=== PATIENT | male | born 1975 | race Caucasian/White ===

== ENCOUNTER 2020-05-18 00:49 | Outpatient (CLI) | payer BC, SELFPAY ==
[2020-05-18 19:29] LABS: SARS-CoV-2 RNA PCR Negative
== END 2020-05-18 00:50 | disposition home or self-care (01) ==
LOC: ANHCOVIDDT 00:50
PROVIDERS: PCP Internal Medicine; Visit Provider Orthopaedic Surgery
DX: Z01.812 Encounter for preprocedural laboratory examination (principal); Z20.828 Contact with and (suspected) exposure to other viral communicable diseases
CPT/HCPCS: 87635; C9803; U0003

== ENCOUNTER 2020-05-21 01:31 | Day surgery (SDC) | payer BC, SELFPAY ==
[2020-05-17 16:57] VITALS: BMI 22.8
--- NOTE | 2020-05-20 08:47 | WPDANESEPPF ---
Anes - Initial Pre Proc Eval Procedure: Operation Date: 05/21/20 14:45 Proposed Procedures p Left Thumb Ulnar Collateral Ligament Repair - César Mcguire MD Date/Time: 05/20/20 08:47 Surgeon: César Mcguire MD Pre Op Diagnosis: LEFT THUMB ULNAR COLLATERAL LIGAMENT TEAR Patient Data Age: 44 Gender: M Height: 1.73 m Weight: 68.04 kg Allergies Allergy/AdvReac Type Severity Reaction Status Date / Time amoxicillin Allergy Unknown Hives Verified 05/21/20 13:20 Home Medications Medication Instructions Recorded Confirmed Type No Home Medications 05/17/20 05/17/20 History Patient hx anesthesia problems: none Family hx anesthesia problems: none [facility] Surgical History Surgical History (Updated 05/20/20 @ 08:47 by Rosales Almodovar DO) History of vasectomy Family History Family History (Updated 05/17/20 @ 10:30 by Margaret Cheung, RT(R)) Other Hypertension Malignant neoplasm Social History Social History (Updated 05/17/20 @ 10:31 by Margaret Cheung RT(R)) Smoking status: Never smoker Second hand tobacco smoke exposure: No Alcohol intake: current Drinks per week: 3 Substance use: never Living arrangements: with family Spiritual care concerns: No Anes - Eval Final PreProcedure Day of Procedure 05/20/20 08:47 Patient weight: normal Heart: regular rate and rhythm Lungs: clear to auscultation and normal air movement Airway: Mallampati scale class II Neurological: alert and oriented Last oral intake: >/= 8 hours ASA classification: I Emergent: no Anesthetic plan: proceed Anesthesia type and monitoring: general LMA and standard monitoring Informed Consent: The patient's anesthetic plan and its attendant risks and benefits were discussed with the patient/family/POA. Questions were solicited and answers provided to the satisfaction of the patient/family/POA.
--- NOTE | 2020-05-21 07:24 | WPDHPUPDATE1 ---
History and Physical Update Update Date/Time: 05/21/20 07:24 History and Physical has been reviewed, including an updated exam of the patient. There are NO changes in the patient's condition. Risks, benefits, and alternatives have been discussed and questions answered. Patient agrees to proceed with procedure.
--- NOTE | 2020-05-21 07:25 | WPDHPUPDATE1 ---
History and Physical Update Update Date/Time: 05/21/20 07:25 History and Physical has been reviewed, including an updated exam of the patient. There are NO changes in the patient's condition. Risks, benefits, and alternatives have been discussed and questions answered. Patient agrees to proceed with procedure.
[2020-05-21 12:41] VITALS: BP 118/8; PULSE 67; RESP 18; TEMP 36.5; O2SAT 100
[2020-05-21] MEDS: LACTATED RINGERS 1,000 ML 30 ML IV CONT ×2 (13:00→16:18)
[2020-05-21] MEDS: CELECOXIB 200 MG CAPSULE PO (13:05)
[2020-05-21] MEDS: ACETAMINOPHEN 500 MG TABLET 1000 MG PO (13:05)
[2020-05-21] MEDS: CLINDAMYCIN 900 MG/NS 50 ML 900 MG/50 ML PIGGYBACK 50 MG IVPB (14:10)
--- NOTE | 2020-05-21 16:06 | PM.OP ---
Procedure Note - Brief Procedure Note - Brief Date of procedure: 05/21/20 Pre-op diagnosis: LEFT THUMB ULNAR COLLATERAL LIGAMENT TEAR Post-op diagnosis: same Procedure performed: REPAIR LEFT THUMB ULNAR COLLATERAL LIGAMENT Anesthesia: GLMA Surgeon: César Mcguire MD Estimated blood loss (mL): 5 Complications: No immediate complications Condition: stable Disposition: PACU
[2020-05-21 16:10] VITALS: BP 116/71; PULSE 64; RESP 14; TEMP 36.1; O2SAT 99
[2020-05-21 16:25] VITALS: BP 115/77; PULSE 50; RESP 14; O2SAT 100
[2020-05-21 16:40] VITALS: BP 116/77; PULSE 61; RESP 16; O2SAT 97
[2020-05-21 17:00] VITALS: BP 124/69; PULSE 52; RESP 14
[2020-05-21 17:30] VITALS: BP 121/67; PULSE 55; RESP 14
--- NOTE | 2020-05-21 17:40 | OP_ITS ---
DATE OF PROCEDURE: 05/21/2020 PREOPERATIVE DIAGNOSIS: Left thumb ulnar collateral ligament rupture. POSTOPERATIVE DIAGNOSIS: Left thumb ulnar collateral ligament rupture. PROCEDURE: Repair of left thumb ulnar collateral ligament. ANESTHESIA: General. COMPLICATIONS: None. INDICATIONS: This is a 44-year-old male who was playing soccer, injuring his left thumb when he got kicked and he came to the office. He was found to have complete avulsion of the ulnar collateral ligament from the distal insertion. He was indicated for repair of left thumb ulnar collateral ligament. DESCRIPTION OF PROCEDURE: The patient was taken to the operating room in stable condition, placed in supine position. General anesthesia induced, and then examination of the left thumb revealed complete avulsion and significant laxity with stress of the ulnar collateral ligament. Once that was performed, then the left upper extremity was prepped and draped sterilely from the fingers to the elbow. The tourniquet was inflated. Incision was made on the ulnar side of the MP joint extending proximally over the 1st phalanx and distally over the 1st metacarpal down to the subcutaneous tissues. Neurovascular structures were preserved. Dissection continued into the capsule of the MP joint. The capsule was incised and reflected dorsally and then the MP joint was exposed and there was an intra-articular fracture of the proximal phalanx. The ulnar collateral ligament was attached. The fragment appeared to be too small for fixation with a screw. So the fragment was then reduced to anatomic position and then a 1.7 mm Arthrex anchor was placed into the proximal edge of the proximal phalanx and it had an excellent bite and 2 sutures were attached. These sutures were then used to repair the ulnar collateral ligament back to the insertion site on the 1st phalanx. The reduction appeared to be maintained. Then using the same Ethibond suture, there were reinforcing sutures of the ligament to the pericapsular region. This was done at approximately neutral degrees. The repair was excellent. The MP joint was stressed and was found to maintain its reduction and there was good stability of the repair. Next, an internal brace was decided to be performed for extra stability, so an Arthrex guide pin was placed 1st in the distal part of the metacarpal and a 3.5 anchor attached to FiberTape was then placed into the distal metacarpal and the bite was excellent. Once that was performed, then another 3.5 screw after the captain/airline pilot hole had been drilled in the proximal part of the proximal phalanx and slightly volar. The captain/airline pilot drill was placed and then a reamer was placed over the guidewire and once that was performed, another Arthrex SwiveLock type of 3.5 anchor then was used to grab the FiberTape and in approximately 30 degrees of flexion of the MP joint, the anchor was placed into the bone, thereby bridging the metacarpal and proximal phalanx simulating the ulnar collateral ligament. Once that was performed, the anchor had an excellent bite. The MP joint was stressed in 30 degrees of flexion and in full extension and it was found to be very stable. The wound was irrigated thoroughly. The tourniquet was deflated. Bleeders were cauterized. The capsule of the MP joint then was repaired with 3-0 Vicryl suture. The subcutaneous tissues were approximated also with 3-0 Vicryl and then the skin was approximated with 4- 0 nylon. Sterile dressing was applied after the wound was washed and then a short-arm thumb spica splint was placed. The patient then was extubated and sent to recovery. Tayna Arabella MT: Reddy
== END 2020-05-21 17:45 | disposition home or self-care (01) ==
PROVIDERS: PCP Internal Medicine; Visit Provider Orthopaedic Surgery
PROC: (CPT 26735; principal; 2020-05-21 14:45)
DX: S53.32XA Traumatic rupture of left ulnar collateral ligament, initial encounter (principal); S62.512A Displaced fracture of proximal phalanx of left thumb, initial encounter for closed fracture; W50.1XXA Accidental kick by another person, initial encounter; Y93.66 Activity, soccer
CPT/HCPCS: 26735; A4565; A9270; J1100; J2250; J2405; J2704; J3010; J7120

== ENCOUNTER 2023-11-08 14:24 | Outpatient (CLI) | payer BC, SELFPAY ==
--- NOTE | ~2023-11-08 | XR_ITS ---
EXAMINATION: XR finger 3rd RT min 2V DATE: 11/08/2023 14:44 INDICATION: Right third finger mallet finger post injury Findings prior TECHNIQUE: Dorsal palmar, lateral and 2 oblique views of the right third digit were obtained COMPARISON: None FINDINGS: [place]-neck deformity at the right third digit with mild hyperextension at the proximal interphalangeal joint and concurrent with mild flexion at the distal interphalangeal joint. No fracture. Joint space s are normal. Mild soft tissue swelling at the third proximal interphalangeal joint. IMPRESSION: 1. [place]-neck deformity at the right third digit. No acute osseous abnormality. Reviewed, dictated and finalized at location A. SERVICES MANAGER
== END 2023-11-08 14:25 | disposition home or self-care (01) ==
PROVIDERS: PCP Internal Medicine; Visit Provider Plastic Surgery
DX: M20.031 Swan-neck deformity of right finger(s) (principal)
CPT/HCPCS: 73140